=== PATIENT | male | born 1995 | race Caucasian/White ===

== ENCOUNTER 2018-10-10 10:56 | Emergency (ER) | payer BC ==
[~2018-10-10] VITALS: Ht 167.6 cm; Wt 66.6 kg
[2018-10-10] MEDS ORDERED: IBUPROFEN 800 MG TAB PO ONE (11:30)
[2018-10-10] MEDS ORDERED: PHENAZOPYRIDINE 100 MG TAB PO ONE (11:30)
[2018-10-10] MEDS ORDERED: IBUP-1022 PO (13:16)
[2018-10-10] MEDS ORDERED: PYRI1TAB5 PO (13:16)
[2018-10-10 13:30] VITALS: BP 99/62
== END 2018-10-10 13:31 | disposition home or self-care (01) ==
LOC: M ED 10:56
DX: S37.39XA Other injury of urethra, initial encounter (principal); R31.0 Gross hematuria; X58.XXXA Exposure to other specified factors, initial encounter; Y92.9 Unspecified place or not applicable; Y93.89 Activity, other specified; Y99.9 Unspecified external cause status